=== PATIENT | male | born 1950 | race Caucasian/White ===

== ENCOUNTER 2016-07-21 20:56 | Emergency (ER) | payer OTHER, MEDICARE ==
--- NOTE | 2016-07-21 21:03 | ED PSYCHIATRIC COMPLAINT ---
History of Present Illness General Chief Complaint: ETOH/Drug Related Complaint Stated Complaint: BIBA FOR ETOH Source: patient, EMS Exam Limitations: intoxication Vital Signs & Intake/Output Vital Signs & Intake/Output SEE TRIAGE Triage Nurses Notes Reviewed? yes Onset: Abrupt Duration: minute(s): (FEW) Timing: single episode today Severity: mild Associated Symptoms: INTOXICATED HPI: 66-year-old male presents via EMS with police for being publicly intoxicated. According to police paper he was wandering in and out of cars looking into windows. He was quiet for safety and brought to the hospital. On arrival he is awake and alert but agitated. He wants to know if he is being charged for anything. He states there is nothing medically wrong with him. Patient is slurring his speech. Past History Travel History Traveled to [place] past 21 day No Medical History Any Pertinent Medical History? see below for history Psychiatric: ALCOHOL ABUSE Surgical History Surgical History: unobtainable Family History Hx Contributory? No Review of Systems Review of Systems Constitutional: Reports: see HPI (UNOBTAINABLE). Physical Exam Physical Exam General Appearance: alert, awake, mild distress, moderate distress, intoxicated, thin Head: atraumatic Eyes: Bilateral: PERRL. Ears, Nose, Throat: normal pharynx, hearing grossly normal Neck: normal inspection, supple, full range of motion Respiratory: normal breath sounds Cardiovascular: regular rate/rhythm Extremities: MOVING ALL EXTREMITIES Neurological/Psychiatric: awake, alert, ATAXIC ORIENTED X 1 Appearance/Memory/Insight: disheveled, impaired insight Behavoir/Eye Contact/Speech: uncooperative Thoughts/Hallucinations: no apparent hallucination Skin: intact, normal color SAD PERSONS Done? patient not suicidal Progress Differential Diagnosis: ALCOHOL INTOXICATION Plan of Care: Orders Procedure Date/time Status Patient Safety Monitor 07/21 2102 Active UNABLE TO FIND A SOBER RIDE. PATIENT WANDED AND PLACED IN GOWN. 11:40 PM Patient has a sober ride for discharge home. No SI/HI. (SUSHIL PETTIT,AMRIT) Departure Departure Time of Disposition: 2338 Disposition: HOME OR SELF CARE Condition: Stable Clinical Impression Primary Impression: Alcohol intoxication Departure Forms: Customer Survey General Discharge Information
== END 2016-07-21 23:45 ==
LOC: ERH 20:56
DX: F10.129 Alcohol abuse with intoxication, unspecified (principal)